=== PATIENT | male | born 1950 | race Hispanic/Latino ===

== ENCOUNTER → 2025-02-17 | Day surgery (SDC) | payer MEDICARE ==
[2025-02-15 08:26] LABS: BASOPHILS % 0.5 % (0.0-1.0); EOSINOPHILS # (AUTO) 0.1 (0.0-0.4); EOSINOPHILS % 1.2 % (0.0-6.0); HEMATOCRIT 40.7 % (38.2-49.6); HEMOGLOBIN 13.6 g/dL (14.0-18.0); LYMPHOCYTES # (AUTO) 1.9 (1.0-3.2); MEAN CORPUSCULAR HEMOGLOBIN 28.6 pg (28-32); MEAN CORPUSCULAR HGB CONC 33.4 g/dL (31-35); MEAN CORPUSCULAR VOLUME 85.5 fL (81-99); MONOCYTES # (AUTO) 0.5 (0.2-0.8); MONOCYTES % 7.1 % (4.4-11.3); NEUTROPHILS % 65.8 % (38.7-80.0); PLATELET COUNT 196 x10e3/uL (140-360); RED BLOOD COUNT 4.76 x10e6/uL (4.3-5.7); RED CELL DISTRIBUTION WIDTH 13.6 % (11.7-14.4); WHITE BLOOD COUNT 7.59 x10e3/uL (4.8-10.8)
[2025-02-15 08:51] LABS: ANION GAP 14.8 mmol/L (8-16); CALCIUM 9.4 mg/dL (8.4-10.2); CREATININE, SERUM 1.23 mg/dL (0.72-1.25); POTASSIUM 3.8 mmol/L (3.5-5.1)
[~2025-02-17] MED LIST: ACETAMINOPHEN 1000 MG/100 ML 100 ML IV ONE; ASPIRIN ENTERI325 MG PO; ASPIRIN81 MG PO; ATENOLOL50 MG PO; BUPIVACAINE LIPOSOME/PF 266 MG/20 ML IJ ONE; CHLORTHALIDONE25 MG PO; CLOPIDOGREL75 MG PO; CRESTOR40 MG; DEXAMETHASONE SOD PHOS INJ 4 MG/ML SDV ONE; FENTANYL CITRATE/PF 100MCG/2 ML INJ ONE; FLOMAX0.4 MG PO; LACTATED RINGER'S 1,000 ML ONE; LEVOFLOXACIN500 MG PO; LIDOCAINE HCL 2% LOCAL INJ 5 ML SDV VIAL INJ ONE; LIPITOR20 MG PO; METFORMIN HCL850 MG PO; ONDANSETRON HCL INJ 2MG/ML 2ML 2 MG/ML VIAL ONE; PROPOFOL IV EMULSION 10 MG/ML 20 ML VIAL ONE; ROCURONIUM BROMIDE 1 ML IV ONE; ROPIVACAINE/EPI/CLONIDINE/KET 50 ML SYRINGE INJ ONE; SEVOFLURANE INHAL SOLN 250 ML PEN BTL ONE; TRANEXAMIC ACID 1,000 MG/10 ML ML ONE; Vancomycin IV 1 GM VIAL ONE; ZESTRIL40 MG PO
[2025-02-17] MEDS: CEFAZOLIN SODIUM 2 GM ONE (08:44)
[2025-02-17] MEDS: LACTATED RINGER'S 1,000 ML ONE (08:45)
[2025-02-17] MEDS: HYDRALAZINE HCL 20 MG/ML VIAL ONE (14:10)
[2025-02-17] MEDS: KETOROLAC TROMETHAMINE 30 MG/ML VIAL ONE (15:37)
[2025-02-17] MEDS: FAMOTIDINE 20 MG/2 ML VIAL IV ONE (16:22)
[2025-02-17] MEDS: ONDANSETRON HCL INJ 2MG/ML 2ML 2 MG/ML VIAL ONE (16:27)
[2025-02-17 16:30] VITALS: BP 129/76; PULSE 62; RESP 17; O2SAT 97
== END | disposition home or self-care (01) ==
LOC: OR 07:17
PROVIDERS: ATTEND Orthopaedic Surgery Sports Medicine
DX: M17.11 Unilateral primary osteoarthritis, right knee (principal); M25.761 Osteophyte, right knee; E11.9 Type 2 diabetes mellitus without complications; I25.810 Atherosclerosis of coronary artery bypass graft(s) without angina pectoris; I10 Essential (primary) hypertension; E78.5 Hyperlipidemia, unspecified; N40.0 Benign prostatic hyperplasia without lower urinary tract symptoms; Z01.810 Encounter for preprocedural cardiovascular examination; Z01.812 Encounter for preprocedural laboratory examination; Z01.818 Encounter for other preprocedural examination; Z79.02 Long term (current) use of antithrombotics/antiplatelets; Z79.82 Long term (current) use of aspirin; Z79.84 Long term (current) use of oral hypoglycemic drugs; Z79.899 Other long term (current) drug therapy; Z95.1 Presence of aortocoronary bypass graft; Z86.73 Personal history of transient ischemic attack (TIA), and cerebral infarction without residual deficits
CPT/HCPCS: 27447; 36415 ×2; 71046; 73560; 80048; 82948; 85025; 88304; 88311; 93005 ×2; 97110; 97116; 97161; C1713 ×2; C1776 ×3; J0131; J0360; J0666; J1100; J1885; J2003; J2405; J2704; J3010; J3370; J7121